=== PATIENT | male | born 1995 | race Two or more races ===

== ENCOUNTER 2021-06-23 17:26 | Emergency (ER) | payer OTHER ==
[~2021-06-23] VITALS: Ht 152.4 cm; Wt 54.4 kg
== END 2021-06-23 20:56 | disposition home or self-care (01) ==
LOC: ER 17:26
DX: A05.9 Bacterial foodborne intoxication, unspecified (principal); R19.7 Diarrhea, unspecified

== ENCOUNTER 2023-06-30 14:24 | Emergency (ER) | payer OTHER ==
[~2023-06-30] VITALS: Ht 160 cm; Wt 54.4 kg
[2023-06-30 15:47] LABS: HEMATOCRIT 43.7 % (39.0-48.0); HEMOGLOBIN 15.4 g/dL (13-16.00); MEAN CELL VOLUME 86.7 fL (80.0-100.00); MEAN CORPUSCULAR HEMOGLOBIN 30.6 pg (27.00-32.0); MEAN CORPUSCULAR HGB CONC 35.3 g/dl (32.0-36.0); PLATELET COUNT 139 K/uL (150-450); RED BLOOD COUNT 5.04 M/uL (4.00-6.00); RED CELL DISTRIBUTION WIDTH 12.9 % (11.5-14.5)
== END 2023-06-30 15:47 | disposition home or self-care (01) ==
LOC: ER 14:24
PROVIDERS: Emergency Medicine
DX: J10.1 Influenza due to other identified influenza virus with other respiratory manifestations (principal); J22 Unspecified acute lower respiratory infection; Z87.891 Personal history of nicotine dependence